=== PATIENT | male | born 1960 | race African-American/Black ===

== ENCOUNTER 2016-04-01 20:18 | Emergency (ER) | payer SELFPAY ==
--- NOTE | 2016-04-01 21:01 | ED Physician Documentation ---
General Adult - HISTORIAN Historian: patient - HPI Stated Complaint: dizzy, "falls out" Chief Complaint: General Adult Additional Information: Gets dizzy and falls down once every 3-4 months over the last year. Has not seen anyone for this. Non-bloody, non-bilious emesis twice a week. Thinks this is because he eats too much salt. Drinks 12 32 ounce cups of water a day. Orthostatics show significant drops in BP and increase in HR. First visit to this ER in 4 years. Staff report "large amount" of weight lost in that period of time. No documentation in computer to compare weights then and now. - ROS CONST: denies: fever, sweating CVS/RESP: denies: chest pain GI/: vomiting - PAST HX Past History: hypertension, other (schizophrenia) Other History: other (chronic back pain; NIDDM; on benztropine, extrapyrimadal symptoms. ) Surgeries/Procedures: none Allergies/Adverse Reactions: Allergies Allergy/AdvReac Type Severity Reaction Status Date / Time No Known Allergies Allergy Verified 04/01/16 21:12 Home Medications: Ambulatory Orders Medication Instructions Recorded Benztropine Mesylate [Benztropine 2 mg PO HS 04/01/16 Mesylate] Citalopram Hydrobromide 20 mg PO D 04/01/16 [Citalopram HBr] Metformin HCl [Glucophage] 500 mg PO D 04/01/16 Simvastatin [Zocor] 20 mg PO D 04/01/16 Trazodone HCl [Oleptro ER] 150 mg PO HS 04/01/16 - SOCIAL HX Smoking History: cigarettes (1/2 PPD for 45 years) Alcohol Use: heavy (quit 5 years ago) Drug Use: none (denies) - FAMILY HX Family History: No - REVIEWED ASSESSMENTS Nursing Assessment Reviewed: Yes Vitals Reviewed: Yes Progress - Progress Progress: Chest PA and lateral views Clinical history: Dyspnea and weight loss Right inferior perihilar region is slightly prominent cannot exclude mass lesion .. Normal heart shadow and mediastinum . Clear left lung. No effusions . Impression: Slightly prominent right inferior perihilar region may require CT scan of the chest exclude mass lesion Otherwise no active pulmonary pathology or pleural effusion Electronically signed on Apr 01, 2016 10:02:42 PM FERMENTER HELPER by: Gideon Castrejon Given outpatient order for Chest CT, results to Dr. Gomez. ED Results Lab/Radiology - Orders Orders: ED Orders Category Date Time Status Continuous EKG monitoring Q1H Care 04/01/16 20:46 Active Continuous Pulse Oximetry Q1H Care 04/01/16 20:46 Active Orthostatics 1T Care 04/01/16 20:[address] Saline Lock/IV Now Care 04/01/16 20:45 Active CBC/PLATELET/DIFF Routine Lab 04/01/16 Ordered CMP Routine Lab 04/01/16 Ordered DRUG SCREEN URINE MEDICAL ONLY Routine Lab 04/01/16 Ordered ETHANOL MEDICAL USE ONLY Stat Lab 04/01/16 Ordered URINALYSIS Routine Lab 04/01/16 Ordered Chem Sticks Med 04/02/16 07:30 Ordered 1 each CHEMQ EKG WITH COMPARISON Stat Ther 04/01/16 Ordered General Adult Physical Exam - PHYSICAL EXAM GENERAL APPEARANCE: no distress EENT: eye inspection normal, ENT inspection normal, pharynx normal NECK: normal inspection, supple. No: lymphadenopathy RESPIRATORY: no resp distress, chest non-tender, breath sounds normal, other ( abdominal breather (affectation?)) CVS: reg rate & rhythm, heart sounds normal, no murmur ABDOMEN: soft, normal bowel sounds, non-tender RECTAL: deferred BACK: normal inspection, no CVA tenderness SKIN: warm/dry, normal color EXTREMITIES: non-tender, normal range of motion, no evidence of injury, no edema NEURO: CN's nml as tested, motor nml, sensation nml Discharge Clincal Impression: Extrapyramidal symptom Additional Instructions: I suspect your occasional fall is related to the side effects from medications you used to take. Make an appointment to see Dr. Gomez in the next two weeks. The clinic number for Dr. Gomez is [phone] Home Medications: Ambulatory Orders Benztropine Mesylate [Benztropine Mesylate] 2 mg PO HS 04/01/16 Citalopram Hydrobromide [Citalopram HBr] 20 mg PO D 04/01/16 Metformin HCl [Glucophage] 500 mg PO D 04/01/16 Simvastatin [Zocor] 20 mg PO D 04/01/16 Trazodone HCl [Oleptro ER] 150 mg PO HS 04/01/16 Condition: Good Disposition: 01 HOME, SELF-CARE Decision to Admit: NO Decision Time: 22:27
[2016-04-01 21:18] LABS: BASOPHILS % 0.5 (0.0-1.5); EOSINOPHILS % 1.3 % (0.0-6.8); MEAN CORPUSCULAR HEMOGLOBIN 26.7 pg (28.0-34.0); MONOCYTES # 0.2 # k/uL (0.0-0.9); MONOCYTES % 4.8 % (0.0-11.0); NEUTROPHILS # 1.3 # k/uL (1.4-7.7)
[2016-04-01 21:30] LABS: eGFR (African) > 60; eGFR (Non-African) > 60
[2016-04-01 22:08] LABS: AMPHETAMINE NEGATIVE ng/mL (<1000); BARBITURATES NEGATIVE ng/mL (<300); CANNABINOIDS NEGATIVE ng/mL (<50); COCAINE NEGATIVE ng/mL (<150); METHAMPHETAMINE NEGATIVE ng/mL (<1000); METHYLENEDIOXYMETHAMPHETAMINE NEGATIVE ng/mL (<500)
[2016-04-01 22:11] LABS: APPEARANCE,URINE Clear (CLEAR); COLOR,URINE Yellow (YELLOW); OCCULT BLOOD,URINE Negative (NEGATIVE); PH URINE 7.5 (5.0 - 8.0); UROBILINOGEN URINE 0.2 Eu (0.2-1.0)
[2016-04-01 22:40] VITALS: BP 118/60
--- NOTE | 2016-04-01 23:57 | Diagnostic Imaging Report ---
[facility] [id number] [facility] [address] [place], [place]. 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 Normal heart shadow and mediastinum . Clear left lung. No effusions . Impression: Slightly prominent right inferior perihilar region may require CT scan of the chest exclude mass lesion Otherwise no active pulmonary pathology or pleural effusion ~ Electronically signed on Apr 01, 2016 10:02:42 PM PRODUCT MARKETING ENGINEER by: Gideon SANCHEZ
== END 2016-04-01 22:25 | disposition home or self-care (01) ==
LOC: ED 20:18
DX: G25.9 Extrapyramidal and movement disorder, unspecified (principal); I10 Essential (primary) hypertension; E11.9 Type 2 diabetes mellitus without complications; Z87.891 Personal history of nicotine dependence
CPT/HCPCS: 71020; 80053; 80320; 80377; 81002; 85025; 99283; G0477; G0480; S1016

== ENCOUNTER 2016-07-24 15:00 | Emergency (ER) | payer OTHER ==
--- NOTE | 2016-07-24 15:33 | ED Physician Documentation ---
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 Has beendrinking more alcohol then usual. Spouse states that he has bee getting more confused. Patient has a history of alcohol dependency in the past.) - ROS CONST: no problems. denies: fever, chills CVS/RESP: shortness of breath, cough (dry) - PAST HX Past History: asthma, other (arthritis) Other History: diabetes Type 2 (recetnly diagnoses, doesnot check BS) Surgeries/Procedures: none Immunizations: referred to PCP Allergies/Adverse Reactions: Allergies Allergy/AdvReac Type Severity Reaction Status Date / Time No Known Allergies Allergy Verified 07/24/16 15:13 Home Medications: Ambulatory Orders Medication Instructions Recorded Trazodone HCl [Oleptro ER] 150 mg PO HS 04/01/16 Citalopram Hydrobromide [Celexa] 40 mg PO DAILY u2 06/18/16 Buspirone HCl [Buspar] 5 mg PO BID #60 tablet 07/24/16 Metformin HCl [Glucophage] 500 mg PO AM #30 tablet 07/24/16 - SOCIAL HX Smoking History: greater than 1 pack/day Alcohol Use: heavy (12 beers a day) Drug Use: none - FAMILY HX Family History: No - VITAL SIGNS Vital Signs: Vital Signs Temp Pulse Resp BP Pulse Ox 98.7 F 73 22 153/83 98 07/24/16 15:07 07/24/16 15:07 07/24/16 15:07 07/24/16 15:07 07/24/16 15:07 - REVIEWED ASSESSMENTS Nursing Assessment Reviewed: Yes Vitals Reviewed: Yes Progress - Progress Progress: Patient advised that his lungs seem to be doing well at this time, his SA02 has been running in the high 90 w/o oxygen, lungs are clear. Believe that some of his symptoms are related to anxiety. Advised to stay off of alcohol, may be having some mild withdrawals. Patient desires to be admitted to [facility] in the AM, will try to arrange for assessment. General Adult Physical Exam - PHYSICAL EXAM GENERAL APPEARANCE: no distress EENT: ENT inspection normal NECK: normal inspection, thyroid normal RESPIRATORY: no resp distress, chest non-tender CVS: reg rate & rhythm, heart sounds normal, equal pulses, no murmur, no gallop ABDOMEN: soft, normal bowel sounds, non-tender, hepatomegaly (mild), distended ( mild). No: rigid BACK: normal inspection, no CVA tenderness SKIN: warm/dry, normal color EXTREMITIES: non-tender, normal range of motion NEURO: CN's nml as tested, motor nml, sensation nml, mood/affect nml Discharge Clincal Impression: Anxiety Prescriptions: Buspirone HCl [Buspar] 5 mg PO BID #60 tablet Metformin HCl [Glucophage] 500 mg PO AM #30 tablet Referrals: Primary Doctor,Emilia [Primary Care Provider] - 2 Days Home Medications: Ambulatory Orders Trazodone HCl [Oleptro ER] 150 mg PO HS 04/01/16 Citalopram Hydrobromide [Celexa] 40 mg PO DAILY u2 06/18/16 Buspirone HCl [Buspar] 5 mg PO BID #60 tablet 07/24/16 Metformin HCl [Glucophage] 500 mg PO AM #30 tablet 07/24/16 Comments: I will call in medication for you to get for your diabetes and anxiety. Call [facility] at 9AM to talk about possible admission. If you have any further problems to return to the ED. Condition: Stable Disposition: 01 HOME, SELF-CARE Decision to Admit: NO Date of Decison to Admit: 07/24/16 Decision Time: 17:02
[2016-07-24 15:48] LABS: BASOPHILS % 0.5 (0.0-1.5); EOSINOPHILS % 1.9 % (0.0-6.8); MEAN CORPUSCULAR HEMOGLOBIN 26.9 pg (28.0-34.0); MEAN CORPUSCULAR VOLUME 85.7 fl (80.0-100.0); MONOCYTES % 8.3 % (0.0-11.0); NEUTROPHILS # 2.1 # k/uL (1.4-7.7)
[2016-07-24 15:59] LABS: eGFR (African) > 60; eGFR (Non-African) > 60
--- NOTE | 2016-07-24 16:51 | Diagnostic Imaging Report ---
[facility] [address] [facility] [address] [place], [place]. [address] Report Submission Date: July 24, 2016 4:40:38 PM CDT Patient Study Name: PHILLIP LEE Date: July 24, 2016 3:58:44 PM CDT Modality Type: CR Gender: M Description: CHEST : 64 Institution: [facility] Physician: JANA SOLER Pa and lateral chest Clinical history :short of breath Comparison April 01, 2016 Technique pa and lateral upright Findings: The lung bain are clear. The lung bain are hyperinflated. The mildly lobulated contour of the right hilum is unchanged and is probably vascular. I see no mediastinal mass. There is no pleural effusion or lesion of the bony thorax. Impression: No acute pulmonary disease Hyperinflation. No change from the previous chest radiograph Electronically signed on July 24, 2016 4:40:38 PM CDT by: Yo SANCHEZ
[2016-07-24 18:08] VITALS: BP 148/75
== END 2016-07-24 17:45 | disposition home or self-care (01) ==
LOC: ED 15:00
DX: F41.9 Anxiety disorder, unspecified (principal); F17.210 Nicotine dependence, cigarettes, uncomplicated
CPT/HCPCS: 71020; 80053; 83036; 84484; 85025; 85379; 99283; S1016

== ENCOUNTER 2016-10-06 13:49 | Emergency (ER) | payer OTHER ==
--- NOTE | 2016-10-06 14:26 | ED Physician Documentation ---
Low Back Pain - HPI Stated Complaint: back pain from fall Chief Complaint: Lower Extremity Injury Onset: days ago (3 days) Duration: continues in ED Recent Injury: Yes Context: fall Where: other (walking to [employer]) Severity: moderate Quality: dull Associated Symptoms: denies: fever, chills Further Comments: yes - ROS CONST: no problems GI/: denies: abdominal pain, black stools - PAST HX Past History: other (schizophrenia) Other History: diabetes Type 2 Surgeries/Procedures: none Allergies/Adverse Reactions: Allergies Allergy/AdvReac Type Severity Reaction Status Date / Time No Known Allergies Allergy Verified 10/06/16 14:05 Home Medications: Ambulatory Orders Medication Instructions Recorded Trazodone HCl [Oleptro ER] 150 mg PO HS 04/01/16 Citalopram Hydrobromide [Celexa] 40 mg PO DAILY u2 06/18/16 Buspirone HCl [Buspar] 5 mg PO BID #60 tablet 07/24/16 Metformin HCl [Glucophage] 500 mg PO AM #30 tablet 07/24/16 Naproxen [Naprosyn] 500 mg PO BID PRN #30 tablet 10/06/16 - SOCIAL HX Smoking History: less than 1 pack/day (1/2 ppd) Alcohol Use: none Drug Use: none - FAMILY HX Family History: no significant history - VITAL SIGNS Vital Signs: Vital Signs Temp Pulse Resp BP Pulse Ox 148/75 07/24/16 18:06 - REVIEWED ASSESSMENTS Nursing Assessment Reviewed: Yes Vitals Reviewed: Yes Low Back Pain/Injury - Physical Exam General Appearance: no acute distress, alert Neck: non-tender Resp/CVS: chest non-tender, breath sounds nml, heart sounds nml, no resp. distress, lungs clear, reg. rate & rhythm Abdomen: non-tender, no organomegaly, no pulsatile mass Back: CVA tenderness (lower right). No: vertebral point-tendernes, muscle spasm Straight Leg Raising: No: Negative Left, Negative Right Neuro/Psych: oriented x3, motor nml, sensation nml, bilat. doriflexion nml, reflexes nml. No: sensory/motor deficit Discharge Clincal Impression: Strain of muscle, fascia and tendon of lower back, initial encounter Referrals: Primary Doctor,No [Primary Care Provider] - 2 Days Additional Instructions: I would go ahead and start using a warm/cool compress to the lower back area as needed for pain. Do the exercises as instructed. I will call in some naproxen 500 mg , to take one by mouth twice a day with food. If symptoms are not improving in the next week to be seen in the clinic for follow-up. Home Medications: Ambulatory Orders Trazodone HCl [Oleptro ER] 150 mg PO HS 04/01/16 Citalopram Hydrobromide [Celexa] 40 mg PO DAILY u2 06/18/16 Buspirone HCl [Buspar] 5 mg PO BID #60 tablet 07/24/16 Metformin HCl [Glucophage] 500 mg PO AM #30 tablet 07/24/16 Naproxen [Naprosyn] 500 mg PO BID PRN #30 tablet 10/06/16 Condition: Stable Disposition: 01 HOME, SELF-CARE Decision to Admit: NO Date of Decison to Admit: 10/06/16 Decision Time: 14:46
[2016-10-06] MEDS: KETOROLAC TROMETHAMINE 60 MG/2 ML VIAL IM ONE (14:40)
== END 2016-10-06 14:55 | disposition home or self-care (01) ==
LOC: ED 13:49
DX: S39.012A Strain of muscle, fascia and tendon of lower back, initial encounter (principal); X58.XXXA Exposure to other specified factors, initial encounter; Y93.9 Activity, unspecified; Y99.9 Unspecified external cause status
CPT/HCPCS: 96372; 99283; J1885

== ENCOUNTER 2017-01-07 11:39 | Emergency (ER) | payer OTHER ==
[2017-01-07 11:56] VITALS: BP 144/78
--- NOTE | 2017-01-07 12:28 | ED Physician Documentation ---
Lower Extremity Problem - HISTORIAN Historian: patient - HPI Stated Complaint: leg pain Chief Complaint: Lower Extremity Problem Additional Information: pt c/o 6 mon of lt lower leg pain-has not taken any meds even ibu or tylenol. no known injuries Location of Injury: L leg Onset: other (6 mo) Timing: still present Duration: constant Recent Injury: No Severity: moderate Quality: pain, tenderness. denies: swelling, numbness, tingling Exacerbated By: nothing, walking (worse w/walking) Relieved By: nothing Associated Symptoms: denies: shortness of breath, rapid heart rate - ROS CONST: no problems MS/SKIN/LYMPH: none GI/: none EYES/ENT: denies: problems with vision NERUO/PSYCH: difficulty walking (slight). denies: headache - PAST HX Past History: none PE Risk Factors: hypertension, other (djd schizophrenia) Surgeries/Procedures: none Allergies/Adverse Reactions: Allergies Allergy/AdvReac Type Severity Reaction Status Date / Time No Known Allergies Allergy Verified 01/07/17 11:56 Home Medications: Ambulatory Orders Medication Instructions Recorded Trazodone HCl [Oleptro ER] 150 mg PO HS 04/01/16 Citalopram Hydrobromide [Celexa] 40 mg PO DAILY u2 06/18/16 Buspirone HCl [Buspar] 5 mg PO BID #60 tablet 07/24/16 Metformin HCl [Glucophage] 500 mg PO AM #30 tablet 07/24/16 Naproxen [Naprosyn] 500 mg PO BID PRN #30 tablet 10/06/16 - SOCIAL HX Smoking History: less than 1 pack/day Alcohol Use: none Drug Use: none - FAMILY HX Family History: no significant history - VITAL SIGNS Vital Signs: Vital Signs Temp Pulse Resp BP Pulse Ox 98.1 F 79 14 144/78 97 01/07/17 11:52 01/07/17 11:52 01/07/17 11:52 01/07/17 11:52 01/07/17 11:52 - REVIEWED ASSESSMENTS Nursing Assessment Reviewed: Yes Vitals Reviewed: Yes ED Results Lab/Radiology - Radiology Radiology Impressions: no acute disease seen lt knee or thigh - Orders Orders: ED Orders Category Date Time Status KNEE 3 VIEWS [RAD] Stat Exams 01/07/17 Completed LOWER LEG X-RAY [TIBIA & FIBULA 2 VIEW] [RAD] Stat Exams 01/07/17 Completed Lower Extremity Problem - EXAM General Appearance: mild distress DTR - Lower Extremities: knee (R): 4+ (swelling or plalp pain knee ok on drawer - sn swelling) Neuro/Tendon: normal sensation, normal motor functions EENT: no signs of dehydration RESPIRATORY: no resp distress, chest non-tender, breath sounds normal CVS: reg rate & rhythm, heart sounds normal VASCULAR: no vascular compromise NEURO/PSYCH: oriented X3, motor nml, sensation nml, mood/affect nml SKIN: warm/dry, normal color. No: cyanosis, diaphoresis, jaundice Discharge Clincal Impression: lt leg pain Referrals: Primary Doctor,No [Primary Care Provider] - 2 Days Comments: home ibu 200 - three tabs tid - f/u w/pcp Condition: Good Disposition: 01 HOME, SELF-CARE Decision to Admit: NO Decision Time: 13:28
--- NOTE | 2017-01-07 13:12 | Diagnostic Imaging Report ---
LUPIS LAMA [facility] [address] [facility].[address] [address] Report Submission Date: Jan 07, 2017 12:42:20 PM CDT Patient Study Name: PHILLIP LEE Date: Jan 07, 2017 12:16:45 PM CDT Modality Type: CR Gender: M Description: LOWER EXTREMITY : 64 Institution: [facility] Physician: LUPIS LAMA Examination: Plain film knee History: Knee discomfort Findings: 3 views of the knee demonstrates normal cortical margins. No fracture. No dislocation. No joint effusion. No soft tissue irregularity. Impression: No acute osseous abnormality. Electronically signed on Jan 07, 2017 12:42:20 PM CDT by: Tejinder SANCHEZ
--- NOTE | 2017-01-07 13:12 | Diagnostic Imaging Report ---
LUPIS LAMA [facility] [address] [facility].[address] [address] Report Submission Date: Jan 07, 2017 12:43:35 PM CDT Patient Study Name: PHILLIP LEE Date: Jan 07, 2017 12:19:20 PM CDT Modality Type: CR Gender: M Description: LOWER EXTREMITY : 64 Institution: [facility] Physician: LUPIS LAMA Examination: Plain film tibia/fibula History: Discomfort Comparison exams: None available Findings: 3 views of the tibia fibula demonstrates normal cortical margins. No evidence for fracture line. Unfused ossicle adjacent to the distal fibula. No soft tissue abnormality. Impression: No acute osseous abnormality. Electronically signed on Jan 07, 2017 12:43:35 PM CDT by: Tejinder SANCHEZ
== END 2017-01-07 13:28 | disposition home or self-care (01) ==
LOC: ED 11:39
DX: M79.662 Pain in left lower leg (principal)
CPT/HCPCS: 73562; 73590; 99283

== ENCOUNTER 2017-02-08 12:17 | Emergency (ER) | payer OTHER ==
--- NOTE | 2017-02-08 12:35 | ED Physician Documentation ---
Low Back Pain - HISTORIAN Historian: patient - HPI Stated Complaint: Back Pain Chief Complaint: Low Back Pain/ Injury History: history of chronic pain: Onset: other (2 months ) Duration: continues in ED Recent Injury: No Context: bending Where: other (all the time) Other Injuries: other (hurt all over ) Severity: mild Quality: other ("just hurts" ) Associated Symptoms: denies: fever, constipation, incontinence, nausea, vomiting , dizziness Worsened By:: other (bending forward ) Relieved By: nothing Further Comments: yes (he states he has been treated by Dr Gomez for back pain and he is not noting any change in meds or pain) - ROS CONST: no problems CVS/RESP: none EYES/ENT: none MS/SKIN/LYMPH: none Neuro/Psych: none GI/: denies: abdominal pain - PAST HX Past History: other (psych and back pain ) Surgeries/Procedures: none Immunizations: referred to PCP Allergies/Adverse Reactions: Allergies Allergy/AdvReac Type Severity Reaction Status Date / Time No Known Allergies Allergy Verified 01/07/17 11:56 Home Medications: Ambulatory Orders Medication Instructions Recorded Trazodone HCl [Oleptro ER] 150 mg PO HS 04/01/16 Citalopram Hydrobromide [Celexa] 40 mg PO DAILY u2 06/18/16 Buspirone HCl [Buspar] 5 mg PO BID #60 tablet 07/24/16 Metformin HCl [Glucophage] 500 mg PO AM #30 tablet 07/24/16 Naproxen [Naprosyn] 500 mg PO BID PRN #30 tablet 10/06/16 - SOCIAL HX Smoking History: cigarettes Alcohol Use: none Drug Use: none - FAMILY HX Family History: none - VITAL SIGNS Vital Signs: Vital Signs Temp Pulse Resp BP Pulse Ox 98 F 77 18 121/76 98 02/08/17 12:26 02/08/17 12:26 02/08/17 12:26 02/08/17 12:26 02/08/17 12:26 - REVIEWED ASSESSMENTS Nursing Assessment Reviewed: Yes Vitals Reviewed: Yes ED Results Lab/Radiology - Orders Orders: ED Orders Category Date Time Status Ketorolac Tromethamine [Toradol] Med 02/08/17 12:36 Once 60 mg IM NOW ONE Low Back Pain/Injury - Physical Exam General Appearance: no acute distress EENT: eye inspection normal Neck: non-tender, painless ROM Resp/CVS: chest non-tender, breath sounds nml, heart sounds nml, no resp. distress, lungs clear, reg. rate & rhythm Abdomen: non-tender, no organomegaly Back: non-tender, other (does note pain with forward bending ) Neuro/Psych: oriented x3, motor nml, sensation nml Skin: warm/dry, normal color Extremities: non-tender, normal range of motion, no evidence of injury, no edema Discharge Clincal Impression: Low back pain Qualifiers: Chronicity: chronic Back pain laterality: bilateral Sciatica presence: without sciatica Qualified Code(s): M54.5 - Low back pain; G89.29 - Other chronic pain; G89.29 - Other chronic pain Referrals: Primary Doctor,No [Primary Care Provider] - 2 Days Condition: Stable Disposition: 01 HOME, SELF-CARE Decision to Admit: NO Date of Decison to Admit: 02/08/17 Decision Time: 12:37
[2017-02-08] MEDS ORDERED: KETOROLAC TROMETHAMINE 60 MG/2 ML VIAL IM ONE (12:36)
[2017-02-08 12:51] VITALS: BP 118/68
== END 2017-02-08 12:50 | disposition home or self-care (01) ==
LOC: ED 12:17
DX: M54.5 Low back pain (principal); G89.29 Other chronic pain
CPT/HCPCS: 96372; 99283; J1885

== ENCOUNTER 2017-03-03 14:03 | Emergency (ER) | payer OTHER ==
--- NOTE | 2017-03-03 14:17 | ED Physician Documentation ---
General Adult - HISTORIAN Historian: patient - HPI Stated Complaint: back pain Chief Complaint: General Adult Onset: days ago Timing: still present Severity: moderate Further Comments: yes (Pt is a 56 yo male with back pain. Pt slipped on wet grass about 2 weeks ago and has had back pain intermittently. 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 Pt was seen here once before with same complaint. ) - ROS CONST: no problems EYES/ENT: none CVS/RESP: none MS/SKIN/LYMPH: back pain - PAST HX Past History: other (diabetes, schizophrenia) Allergies/Adverse Reactions: Allergies Allergy/AdvReac Type Severity Reaction Status Date / Time No Known Allergies Allergy Verified 03/03/17 14:19 Home Medications: Ambulatory Orders Medication Instructions Recorded Trazodone HCl [Oleptro ER] 150 mg PO HS 04/01/16 Citalopram Hydrobromide [Celexa] 40 mg PO DAILY u2 06/18/16 Buspirone HCl [Buspar] 5 mg PO BID #60 tablet 07/24/16 Naproxen [Naprosyn] 500 mg PO BID PRN #30 tablet 10/06/16 - SOCIAL HX Smoking History: cigarettes - FAMILY HX Family History: No - VITAL SIGNS Vital Signs: Vital Signs Temp Pulse Resp BP Pulse Ox 118/68 02/08/17 12:50 - REVIEWED ASSESSMENTS Nursing Assessment Reviewed: Yes Vitals Reviewed: Yes Progress - Progress Progress: Norflex 60 mg IM Toradol 60 mg IM improved. General Adult Physical Exam - PHYSICAL EXAM GENERAL APPEARANCE: moderate distress NECK: normal inspection, supple RESPIRATORY: no resp distress, chest non-tender, breath sounds normal CVS: reg rate & rhythm, heart sounds normal BACK: normal inspection, other (paraspinal muscle spasm, lumbar spine) SKIN: warm/dry, normal color EXTREMITIES: non-tender, normal range of motion, no evidence of injury NEURO: motor nml, sensation nml, other (baseline ms) Discharge Clincal Impression: back pain Referrals: Primary Doctor,No [Primary Care Provider] - Condition: Good Disposition: 01 HOME, SELF-CARE Decision to Admit: NO Decision Time: 14:39
[2017-03-03] MEDS ORDERED: KETOROLAC TROMETHAMINE 60 MG/2 ML VIAL IM ONE (14:20)
[2017-03-03] MEDS ORDERED: (BACK ORDERED; DO NOT ORDER) DIAZEPAM 5 MG/ML DISP.SYRIN IM ONE (14:21)
[2017-03-03] MEDS ORDERED: ORPHENADRINE CITRATE 60 MG/2ML ONE (14:26)
[2017-03-03] MEDS ORDERED: ORPHENADRINE CITRATE 60 MG/2ML IM ONE (14:26)
== END 2017-03-03 14:42 | disposition home or self-care (01) ==
LOC: ED 14:03
DX: M54.9 Dorsalgia, unspecified (principal)
CPT/HCPCS: J1885; J2360; 96372; 99283

== ENCOUNTER 2017-03-16 19:12 | Emergency (ER) | payer OTHER ==
--- NOTE | 2017-03-16 19:46 | ED Physician Documentation ---
General Adult - HISTORIAN Historian: patient - HPI Stated Complaint: vomiting Chief Complaint: General Adult Onset: hours Timing: still present Severity: moderate Further Comments: yes (Pt is a 56 yo male with schizophrenia and c/o vomiting.) - ROS CONST: weakness, chills EYES/ENT: none CVS/RESP: none GI/: vomiting, nausea MS/SKIN/LYMPH: none - PAST HX Past History: hypertension, other (schizophrenia, anxiety) Allergies/Adverse Reactions: Allergies Allergy/AdvReac Type Severity Reaction Status Date / Time No Known Allergies Allergy Verified 03/16/17 19:37 Home Medications: Ambulatory Orders Medication Instructions Recorded Trazodone HCl [Oleptro ER] 150 mg PO HS 04/01/16 Citalopram Hydrobromide [Celexa] 40 mg PO DAILY u2 06/18/16 Buspirone HCl [Buspar] 5 mg PO BID #60 tablet 07/24/16 Naproxen [Naprosyn] 500 mg PO BID PRN #30 tablet 10/06/16 - SOCIAL HX Smoking History: cigarettes - FAMILY HX Family History: No - VITAL SIGNS Vital Signs: Vital Signs Temp Pulse Resp BP Pulse Ox 97.9 F 93 H 16 159/84 99 03/16/17 19:15 03/16/17 19:15 03/16/17 19:15 03/16/17 19:15 03/16/17 19:15 - REVIEWED ASSESSMENTS Nursing Assessment Reviewed: Yes Vitals Reviewed: Yes Progress - Progress Progress: NS 1 L IVF zofran 4 mg IV Pt would not stay to received IVF. Pt received approx 300 cc IVF. General Adult Physical Exam - PHYSICAL EXAM GENERAL APPEARANCE: mild distress EENT: pharynx normal NECK: normal inspection, supple RESPIRATORY: no resp distress, chest non-tender, breath sounds normal CVS: reg rate & rhythm, heart sounds normal ABDOMEN: soft, no organomegaly, normal bowel sounds, non-tender BACK: normal inspection, no CVA tenderness SKIN: warm/dry, normal color EXTREMITIES: non-tender, normal range of motion, no evidence of injury NEURO: oriented X3, motor nml, sensation nml Discharge Clincal Impression: Mild dehydration, alcohol use Referrals: Gideon Gomez MD [Primary Care Provider] - Condition: Stable Disposition: HOME, SELF-CARE Decision to Admit: NO Decision Time: 20:47
[2017-03-16 20:07] LABS: BASOPHILS % 0.4 (0.0-1.5); EOSINOPHILS % 2.4 % (0.0-6.8); MEAN CORPUSCULAR HEMOGLOBIN 27.5 pg (28.0-34.0); MEAN CORPUSCULAR VOLUME 86.2 fl (80.0-100.0); MONOCYTES % 4.8 % (0.0-11.0); NEUTROPHILS # 2.4 # k/uL (1.4-7.7)
[2017-03-16] MEDS: 0.9 % SODIUM CHLORIDE 1,000 ML IV ONE (20:20)
[2017-03-16] MEDS: ONDANSETRON HCL/PF 4 MG/ 2ML VIAL IVP ONE (20:20)
[2017-03-16 20:26] LABS: eGFR (African) > 60; eGFR (Non-African) > 60
[2017-03-16 20:59] VITALS: BP 124/68
== END 2017-03-16 20:45 | disposition home or self-care (01) ==
LOC: ED 19:12
DX: E86.0 Dehydration (principal); F10.94 Alcohol use, unspecified with alcohol-induced mood disorder; F20.9 Schizophrenia, unspecified
CPT/HCPCS: 80053; 80320; 85025; 87400; J2405; J7030; 96361; 96374; 99282; 99283; G0480; S1016

== ENCOUNTER 2017-03-30 09:33 | Emergency (ER) | payer OTHER ==
[2017-03-30] MEDS ORDERED: MAG HYDROX/AL HYDROX/SIMETH 30 ML, Lidocaine 2%Visc 15ml 20 MG, PHENobarb/HYOSCY/ATROPI... PO ONE ×6 (09:42→10:43)
[2017-03-30] MEDS ORDERED: Lidocaine 2%Visc 15ml 20 MG/ML UDC ONE ×2 (09:49→10:44)
[2017-03-30] MEDS ORDERED: MAGNESIUM HYDROXIDE/AL HYDROX 30 ML UDC PO ONE ×2 (09:49→10:43)
--- NOTE | 2017-03-30 09:50 | ED Physician Documentation ---
Abdominal Pain - HISTORIAN Historian: patient - HPI Stated Complaint: Abdominal Pain Chief Complaint: Abdominal Pain Additonal Information: onset this am epigastric pain w/diarrhea x2 normal brown color not liquid. bs this da=[id number]. no recent bad food known. no food since noon yesterday. Onset: hours (6) Duration: waxing, waning Timing: still present Context: bad food (possibly. pt thinks food yest poss not good-chicken which had been in refrig 2 weeks plus. vbital signs good and no fever). denies: out of country travel Severity: mild, moderate Quality: pain Associated Symptoms: nausea, diarrhea Exacerbated by: food Relieved by: supine, remaining still Further Comments: no - ROS CONST: no problems GI/: none CVS/RESP: none EYES/ENT: none MS/SKIN/LYMPH: none. denies: leg swelling, rash, swollen glands, recent injury NEURO/PSYCH: anxiety - SOCIAL HX Smoking History: cigarettes Alcohol Use: none Drug Use: none - FAMILY HX Family History: no significant history, other (htn dm schizophrenia bipolar) - PAST HX Past History: other (as above) Home Medications: Ambulatory Orders Medication Instructions Recorded Trazodone HCl [Oleptro ER] 150 mg PO HS 04/01/16 Benztropine Mesylate 2 mg PO HS 03/30/17 Buspirone HCl [BUSPAR] 5 mg PO BID 03/30/17 Citalopram Hydrobromide 40 mg PO DAILY 03/30/17 [Citalopram HBr] Metformin HCl [Glucophage] 500 mg PO [id number] 03/30/17 Trazodone HCl [Desyrel] 150 mg PO HS 03/30/17 Allergies/Adverse Reactions: Allergies Allergy/AdvReac Type Severity Reaction Status Date / Time No Known Allergies Allergy Verified 03/16/17 19:37 - VITAL SIGNS Vital Signs: Vital Signs Temp Pulse Resp BP Pulse Ox 90 18 134/71 99 03/30/17 09:35 03/30/17 09:35 03/30/17 09:35 03/30/17 09:35 Progress - Results/Orders Results/Orders: pt reports markedly improved-jose;l dismissd rec probably dt tainted chicken-to f /u w/ pcp and get mylanta for next few days ED Results Lab/Radiology - Orders Orders: ED Orders Category Date Time Status Chem Sticks Med 03/30/17 11:00 Ordered 1 each MC CHEMQ Lidocaine 2%Visc 15ml [Xylocaine] Med 03/30/17 09:49 Discontinued 300 mg .ROUTE .STK-MED ONE Lidocaine 2%Visc 15ml [Xylocaine] Med 03/30/17 10:44 Discontinued 300 mg .ROUTE .STK-MED ONE Mag Hydrox/Al Hydrox/Simeth [Mylanta] 30 ml Med 03/30/17 09:42 Discontinued Lidocaine 2%Visc 15ml [Xylocaine] 20 mg PHENobarb/HYOSCY/ATROPINE/SCOP [] 10 ml PO NOW Mag Hydrox/Al Hydrox/Simeth [Mylanta] 30 ml Med 03/30/17 10:43 Discontinued Lidocaine 2%Visc 15ml [Xylocaine] 20 mg PHENobarb/HYOSCY/ATROPINE/SCOP [] 10 ml PO NOW Magnesium Hydroxide/Al Hydrox [Maalox] Med 03/30/17 09:49 Discontinued 30 ml PO .STK-MED ONE Magnesium Hydroxide/Al Hydrox [Maalox] Med 03/30/17 10:43 Discontinued 30 ml PO .STK-MED ONE Abdominal Pain Physical Exam - Physical Exam General Appearance: mild distress EENT: eye inspection normal NECK: normal inspection, supple. No: lymphadenopathy, carotid bruit RESPIRATORY: no resp distress, breath sounds normal CVS: reg rate & rhythm, heart sounds normal ABDOMEN: soft, tenderness (martir epigastric). No: abnormal bowel sounds, McBurney 's point tenderne NEURO: oriented X3, motor nml, sensation nml, mood/affect nml Vital Signs: Vital Signs Temp Pulse Resp BP Pulse Ox 90 18 134/71 99 03/30/17 09:35 03/30/17 09:35 03/30/17 09:35 03/30/17 09:35 Discharge Clincal Impression: food poisioning-improved Referrals: Gideon Gomez MD [Primary Care Provider] - 2 Days Comments: avoid ol;d foods-use mylanta-see pcp very soon or rt ed Condition: Good Disposition: 01 HOME, SELF-CARE Decision to Admit: NO Decision Time: 11:15
[2017-03-30 11:28] VITALS: BP 120/68
== END 2017-03-30 11:26 | disposition home or self-care (01) ==
LOC: ED 09:33
DX: T62.8X1A Toxic effect of other specified noxious substances eaten as food, accidental (unintentional), initial encounter (principal); X58.XXXA Exposure to other specified factors, initial encounter; Y93.9 Activity, unspecified
CPT/HCPCS: 99283; A9270

== ENCOUNTER 2017-05-19 09:17 | Emergency (ER) | payer OTHER ==
--- NOTE | 2017-05-19 09:22 | ED Physician Documentation ---
General Adult - HISTORIAN Historian: patient - HPI Stated Complaint: epigatric pain Chief Complaint: General Adult Onset: days ago (3) Timing: still present Severity: mild Further Comments: yes (He states he has had this pain in the past. He states he has no eaten in 3 days. He states the pain started 3 days ago. He did report vomiting to the nurse but states that is not the case. No fever. No exposures. He states he would like a prescription shot to sleep and asprin) Last known Well Code/Unknown Code: Unknown - ROS CONST: no problems EYES/ENT: none CVS/RESP: none GI/: abdominal pain. denies: problems urinating, vomiting, nausea MS/SKIN/LYMPH: denies: rash NEURO/PSYCH: denies: headache, fainting, dizziness, difficulty walking, difficulty with speech - PAST HX Past History: other Other History: diabetes Type 2, other (depression ) Surgeries/Procedures: other (unknown ) Immunizations: referred to PCP Allergies/Adverse Reactions: Allergies Allergy/AdvReac Type Severity Reaction Status Date / Time No Known Allergies Allergy Verified 05/19/17 09:26 Home Medications: Ambulatory Orders Medication Instructions Recorded Trazodone HCl [Oleptro ER] 150 mg PO HS 04/01/16 Benztropine Mesylate 2 mg PO HS 03/30/17 Buspirone HCl [BUSPAR] 5 mg PO BID 03/30/17 Citalopram Hydrobromide 40 mg PO DAILY 03/30/17 [Citalopram HBr] Metformin HCl [Glucophage] 500 mg PO [id number] 03/30/17 Trazodone HCl [Desyrel] 150 mg PO HS 03/30/17 Ranitidine HCl 150 mg PO BID #60 tablet 05/19/17 - SOCIAL HX Smoking History: non-smoker Alcohol Use: none Drug Use: none - FAMILY HX Family History: No - VITAL SIGNS Vital Signs: Vital Signs Temp Pulse Resp BP Pulse Ox 120/68 03/31/17 14:55 - REVIEWED ASSESSMENTS Nursing Assessment Reviewed: Yes Vitals Reviewed: Yes Progress - Progress Progress: 0942: tolerating breakfast tray well. He is up in the room and in the bed, to the chair and bathroom with no pain complaints. DG General Adult Physical Exam - PHYSICAL EXAM GENERAL APPEARANCE: no distress EENT: eye inspection normal NECK: normal inspection RESPIRATORY: no resp distress, chest non-tender, breath sounds normal CVS: reg rate & rhythm, heart sounds normal, equal pulses, no murmur ABDOMEN: soft, normal bowel sounds, no distension, tenderness (no gaurding. he states pain with palpation 'everywhere' palpation with no masses. ) BACK: normal inspection SKIN: warm/dry, normal color EXTREMITIES: non-tender, normal range of motion, no evidence of injury, no edema NEURO: oriented X3, CN's nml as tested, motor nml, sensation nml, mood/affect nml, cognition normal Discharge Clincal Impression: Reflux gastritis Prescriptions: Ranitidine HCl 150 mg PO BID #60 tablet Referrals: Gideon Gomez MD [Primary Care Provider] - 2 Days Comments: 1. Zantac 150 mg BID ordered 2. Eat food 3. Return to PCP for sleeping concerns. 4. Return to ER for any increased pain or concerns Condition: Stable Disposition: 01 HOME, SELF-CARE Decision to Admit: NO Date of Decison to Admit: 05/19/17 Decision Time: 09:48
[2017-05-19] MEDS: ACETAMINOPHEN 500 MG TABLET ONE (09:32)
[2017-05-19] MEDS: FAMOTIDINE 20 MG TABLET PO ONE (09:32)
[2017-05-19] MEDS: FAMOTIDINE 20 MG TABLET ONE (09:32)
[2017-05-19] MEDS: ACETAMINOPHEN 325 MG TABLET PO ONE (09:32)
[2017-05-19 09:52] VITALS: BP 121/76
== END 2017-05-19 09:48 | disposition home or self-care (01) ==
LOC: ED 09:17
DX: K29.00 Acute gastritis without bleeding (principal)
CPT/HCPCS: 99282

== ENCOUNTER 2017-05-20 10:20 | Emergency (ER) | payer OTHER ==
[2017-05-20] MEDS: MAG HYDROX/AL HYDROX/SIMETH 30 ML, Lidocaine 2%Visc 15ml 20 MG, PHENobarb/HYOSCY/ATROPI... PO ONE ×3 (10:30)
[2017-05-20] MEDS: Lidocaine 2%Visc 15ml 20 MG/ML UDC ONE (10:55)
[2017-05-20] MEDS: MAGNESIUM HYDROXIDE/AL HYDROX 30 ML UDC PO ONE (10:55)
--- NOTE | 2017-05-20 11:11 | ED Physician Documentation ---
Abdominal Pain - HISTORIAN Historian: patient - HPI Stated Complaint: epigastric pain, nausea Chief Complaint: Abdominal Pain Additonal Information: pt here s/o epigastric distress. was here 2 x yest for same he was given zantac but is non compliant and does not eat in consistent manner -statews lives by self told me he did not eat last noct but later states he ate a possibly tainted chicken leg. he requested a tray this am. pt states a desire to but vehimently denies any suicide ideation.. he has been given a gi coctail and says that helps some. Onset: days ago (recurrent over past several days but is meds and dietary non compliant-livess by selt occ stays w/brother and sister) Duration: waxing, waning Timing: worse Context: bad food (possibly). denies: out of country travel Severity: moderate Quality: pain, burning, cramping Associated Symptoms: none Relieved by: food, antacids (took zantac last noct but 'FORGOT THIS AM') Further Comments: yes (fsbs =123) - ROS CONST: recent illness (appears depressed-reportedly his brother had sudden and the ), other (pts brother recently had sudden and the [employer] [facility] AND WAS doa AT THE HOSPITAL.) GI/: none CVS/RESP: none EYES/ENT: none MS/SKIN/LYMPH: none NEURO/PSYCH: depression (PT ADMITS TO BEING DEPRESSED-IN PART DUE TO BROTHER) - SOCIAL HX Smoking History: less than 1 pack/day Alcohol Use: none Drug Use: none - FAMILY HX Family History: none (as above) - PAST HX Past History: other (diabetes schizophrenia htn) Ischemic Bowel Risk Factors: none Surgeries/Procedures: none Home Medications: Ambulatory Orders Medication Instructions Recorded Trazodone HCl [Oleptro ER] 150 mg PO HS 04/01/16 Benztropine Mesylate 2 mg PO HS 03/30/17 Buspirone HCl [BUSPAR] 5 mg PO BID 03/30/17 Citalopram Hydrobromide 40 mg PO DAILY 03/30/17 [Citalopram HBr] Metformin HCl [Glucophage] 500 mg PO [id number] 03/30/17 Ranitidine HCl 150 mg PO BID #60 tablet 05/19/17 Paroxetine HCl [Paxil] 10 mg PO 1T #30 ml 05/20/17 Allergies/Adverse Reactions: Allergies Allergy/AdvReac Type Severity Reaction Status Date / Time No Known Allergies Allergy Verified 05/20/17 10:29 - VITAL SIGNS Vital Signs: Vital Signs Temp Pulse Resp BP Pulse Ox 98.2 F 75 18 157/93 97 05/20/17 10:31 05/20/17 10:31 05/20/17 10:31 05/20/17 10:31 05/20/17 10:31 - REVIEWED ASSESSMENTS Nursing Assessment Reviewed: Yes Vitals Reviewed: Yes Progress - Results/Orders Results/Orders: called social svc for consul--she and pt agree consiter ICF would be beneficial for pt for meds and dietary compliance and social interaction will be of benefit since pt lives alone--soc svc in working on admission.. pt appears appreciative for this tyope approach. additionally he desires rx for admitted depression and indeed he does appear depressed. ED Results Lab/Radiology - Lab Results Lab Results: Lab Results 05/20/17 05/20/17 05/20/17 11:10 11:10 11:10 WBC 2.60 K/ul L K/ul (4.00-12.00) RBC 4.74 M/ul M/ul (3.90-5.20) Hgb 13.5 g/dL g/dL (12.0-18.0) Hct 42.4 % % (37.0-53.0) MCV 89.4 fl fl (80.0-100.0) MCH 28.6 pg pg (28.0-34.0) MCHC 32.0 g/dL g/dL (30.0-36.0) RDW 16.0 % H % (11.3-14.3) Plt Count 199 K/mm3 K/mm3 (130-400) Neut % (Auto) 50.5 % % (39.0-79.0) Lymph % (Auto) 35.5 % % (16.0-50.0) [place] % (Auto) 10.6 % % (0.0-11.0) Eos % (Auto) 1.8 % % (0.0-6.8) Baso % (Auto) 0.3 (0.0-1.5) Neut # (Auto) 1.3 # k/uL L # k/uL (1.4-7.7) Lymph # (Auto) 0.9 # k/uL # k/uL (0.6-4.0) [place] # (Auto) 0.3 # k/uL # k/uL (0.0-0.9) Eos # (Auto) 0.0 # k/uL # k/uL (0.0-0.6) Baso # (Auto) 0.0 # k/uL # k/uL (0.0-0.5) Reactive Lymphs % 1.4 % % (0.0-5.0) Reactive Lymphs # 0.0 # k/uL # k/uL (0.0-0.8) Sodium 139 mmol/L mmol/L (136-145) Potassium 4.4 mmol/L mmol/L (3.5-5.1) Chloride 100 mmol/L mmol/L (98-107) Carbon Dioxide 26 mmol/L mmol/L (22-30) BUN 11 mg/dL mg/dL (9-20) Creatinine 1.00 mg/dL mg/dL (0.66-1.25) Estimated Creat Clear 113 Est GFR ( Amer) > 60 (60 - ) Est GFR (Non-Af Amer) > 60 (60 - ) Glucose 101 mg/dL mg/dL (74-106) Calcium 9.5 mg/dL mg/dL (8.4-10.2) Total Bilirubin 0.7 mg/dL mg/dL (0.2-1.3) AST 40 U/L U/L (15-46) ALT 31 U/L U/L (13-69) Alkaline Phosphatase 107 U/L U/L (38-126) Total Protein 8.7 g/dL H g/dL (6.3-8.2) Albumin 4.6 g/dL g/dL (3.5-5.0) Lipase 175 U/L U/L (23-300) - Orders Orders: ED Orders Category Date Time Status Dialysis Technician Consult [CONS] NOW Cons 05/20/17 11:06 Ordered CBC/PLATELET/DIFF Routine Lab 05/20/17 11:10 Completed CMP Routine Lab 05/20/17 11:10 Completed LIPASE Stat Lab 05/20/17 11:10 Completed URINALYSIS Routine Lab 05/20/17 Ordered Chem Sticks Med 05/20/17 10:30 Discontinued 1 each MC NOW ONE Lidocaine 2%Visc 15ml [Xylocaine] Med 05/20/17 10:22 Discontinued 300 mg .ROUTE .STK-MED ONE Mag Hydrox/Al Hydrox/Simeth [Mylanta] 30 ml Med 05/20/17 10:28 Discontinued Lidocaine 2%Visc 15ml [Xylocaine] 20 mg PHENobarb/HYOSCY/ATROPINE/SCOP [] 10 ml PO NOW Magnesium Hydroxide/Al Hydrox [Maalox] Med 05/20/17 10:22 Discontinued 30 ml PO .STK-MED ONE Abdominal Pain Physical Exam - Physical Exam General Appearance: moderate distress, lethargic EENT: eye inspection normal NECK: normal inspection RESPIRATORY: no resp distress, chest non-tender, breath sounds normal CVS: reg rate & rhythm, heart sounds normal ABDOMEN: soft SKIN: warm/dry, normal color. No: cyanosis, diaphoresis, jaundice, mottled EXTREMITIES: non-tender, normal range of motion NEURO: oriented X3 Vital Signs: Vital Signs Temp Pulse Resp BP Pulse Ox 98.2 F 75 18 157/93 97 05/20/17 10:31 05/20/17 10:31 05/20/17 10:31 05/20/17 10:31 05/20/17 10:31 Discharge Clincal Impression: epigastric distress-improved , dietary and meds non compliance, depression Prescriptions: Paroxetine HCl [Paxil] 10 mg PO 1T #30 ml Referrals: Gideon Gomez MD [Primary Care Provider] - 2 Days Comments: social svc asst in placement ICF for social interaction asst w/meds and food compliance Condition: Fair Disposition: 01 HOME, SELF-CARE Decision to Admit: NO Decision Time: 12:07
[2017-05-20 11:18] LABS: BASOPHILS % 0.3 (0.0-1.5); EOSINOPHILS % 1.8 % (0.0-6.8); MEAN CORPUSCULAR HEMOGLOBIN 28.6 pg (28.0-34.0); MEAN CORPUSCULAR VOLUME 89.4 fl (80.0-100.0); MONOCYTES % 10.6 % (0.0-11.0); NEUTROPHILS # 1.3 # k/uL (1.4-7.7)
[2017-05-20 11:38] LABS: eGFR (African) > 60; eGFR (Non-African) > 60
[2017-05-20 12:23] VITALS: BP 134/89
[2017-05-21 10:58] LABS: APPEARANCE,URINE CLEAR (CLEAR); COLOR,URINE AMBER (YELLOW); OCCULT BLOOD,URINE NEGATIVE (NEGATIVE); PH URINE 5.5 (5.0 - 8.0); UROBILINOGEN URINE 0.2 Eu (0.2-1.0)
== END 2017-05-20 12:21 | disposition home or self-care (01) ==
LOC: ED 10:20
DX: R10.13 Epigastric pain (principal); E11.9 Type 2 diabetes mellitus without complications; I10 Essential (primary) hypertension; F32.89 Other specified depressive episodes; F20.9 Schizophrenia, unspecified
CPT/HCPCS: 80053; 81002; 83690; 85025; A9270; 99283

== ENCOUNTER 2017-05-21 09:57 | Emergency (ER) | payer OTHER ==
--- NOTE | 2017-05-21 10:17 | ED Physician Documentation ---
General Adult - HISTORIAN Historian: patient - HPI Chief Complaint: Dyspnea (2 day) Additional Information: Patient states that he has been SOB for several days, has been wheezing some. Has cough has been productive of clear phlegm. No chest pain noted. Has had some mild swelling in lower extremities. Patient denies any orthopnic symptoms. Patient denies any hemophysis. No fever or chills noted. Timing: still present Severity: mild Modifying Factors: worse with exerction, nothing helps with symptoms Context: no precipitating factor Further Comments: yes (Patient has been seen 2 times in the last 2 days in the ED for abd pain. Patient deneis any abd pain at this time. No nausea/vomiting/ diarrhea/constipation/ melena/ hematachezia.) - ROS CONST: denies: fever, sweating, chills EYES/ENT: none CVS/RESP: shortness of breath, cough. denies: chest pain GI/: none. denies: abdominal pain, problems urinating, vomiting, nausea, diarrhea MS/SKIN/LYMPH: none. denies: calf pain - PAST HX Past History: hypertension, other (schizofrenia) Other History: diabetes Type 2 Surgeries/Procedures: none Immunizations: referred to PCP Allergies/Adverse Reactions: Allergies Allergy/AdvReac Type Severity Reaction Status Date / Time No Known Allergies Allergy Verified 05/21/17 10:25 Home Medications: Ambulatory Orders Medication Instructions Recorded Trazodone HCl [Oleptro ER] 150 mg PO HS 04/01/16 Benztropine Mesylate 2 mg PO HS 03/30/17 Buspirone HCl [BUSPAR] 5 mg PO BID 03/30/17 Citalopram Hydrobromide 40 mg PO DAILY 03/30/17 [Citalopram HBr] Metformin HCl [Glucophage] 500 mg PO [id number] 03/30/17 Ranitidine HCl 150 mg PO BID #60 tablet 05/19/17 Paroxetine HCl [Paxil] 10 mg PO 1T #30 ml 05/20/17 - SOCIAL HX Smoking History: less than 1 pack/day (1/2 ppd) Alcohol Use: occasionally Drug Use: marijuana - FAMILY HX Family History: Yes - VITAL SIGNS Vital Signs: Vital Signs Temp Pulse Resp BP Pulse Ox 134/89 05/20/17 12:21 - REVIEWED ASSESSMENTS Nursing Assessment Reviewed: Yes Vitals Reviewed: Yes Progress - EKG/XRAY/CT EKG: NSR, nonspecific ST T wave chg Comments: no acute ischemic changes, low voltage lead 2 ED Results Lab/Radiology - Radiology Radiology Impressions: Examination: PA and lateral chest. History: Evaluate lung bain. DYSPNEA AND COUGH X 4 DAYS (Hx) Comparison exam: None available for direct view. Findings: PA lateral chest demonstrate a normal cardiac and mediastinal silhouette. Mild tortuosity of the thoracic aorta. No focal infiltrate. No blunting of the costophrenic margins. Osseous structures are appropriate for age. Impression: No acute pulmonary process. General Adult Physical Exam - PHYSICAL EXAM GENERAL APPEARANCE: no distress EENT: eye inspection normal, ENT inspection normal, pharynx normal, no signs of dehydration NECK: normal inspection, thyroid normal, supple RESPIRATORY: no resp distress, chest non-tender, breath sounds normal. No: wheezes, rales, rhonchi CVS: reg rate & rhythm, heart sounds normal, equal pulses ABDOMEN: soft, no organomegaly, normal bowel sounds, no abdominal bruit SKIN: warm/dry, normal color EXTREMITIES: non-tender, no edema NEURO: oriented X3, CN's nml as tested, mood/affect nml, cognition normal Discharge Clincal Impression: Dyspnea Referrals: Gideon Gomez MD [Primary Care Provider] - 2 Days Additional Instructions: It appears that your breathing is doing ok with no major problems. Home and rest. Drink a lot of fluids. Continue with your current medications. Condition: Stable Disposition: 01 HOME, SELF-CARE Decision to Admit: NO Date of Decison to Admit: 05/21/17 Decision Time: 12:28
[2017-05-21 10:50] LABS: MEAN CORPUSCULAR HEMOGLOBIN 28.6 pg (28.0-34.0); MEAN CORPUSCULAR VOLUME 89.3 fl (80.0-100.0)
[2017-05-21 11:03] LABS: eGFR (African) > 60; eGFR (Non-African) > 60
--- NOTE | 2017-05-21 11:16 | Diagnostic Imaging Report ---
JANA SOLER [facility] [id number] Counts Include 234 Beds At [facility] [address] [address] Report Submission Date: May 21, 2017 11:01:05 AM DATA ANALYST REPORT WRITER Patient Study Name: PHILLIP LEE Date: May 21, 2017 10:39:18 AM DATA ANALYST REPORT WRITER Modality Type: DX Gender: M Description: CHEST : 64 Institution: [facility] Physician: JANA SOLER Examination: PA and lateral chest. History: Evaluate lung bain. DYSPNEA AND COUGH X 4 DAYS (Hx) Comparison exam: None available for direct view. Findings: PA lateral chest demonstrate a normal cardiac and mediastinal silhouette. Mild tortuosity of the thoracic aorta. No focal infiltrate. No blunting of the costophrenic margins. Osseous structures are appropriate for age. Impression: No acute pulmonary process. Electronically signed on May 21, 2017 11:01:05 AM DATA ANALYST REPORT WRITER by: Tejinder SANCHEZ
[2017-05-21 13:50] VITALS: BP 154/92
== END 2017-05-21 13:20 | disposition home or self-care (01) ==
LOC: ED 09:57
DX: R06.00 Dyspnea, unspecified (principal); I10 Essential (primary) hypertension; E11.9 Type 2 diabetes mellitus without complications
CPT/HCPCS: 36415; 71046; 80053; 83880; 84484; 85027; 85379; 99282; 99283

== ENCOUNTER 2018-05-21 10:24 | Outpatient (CLI) | payer OTHER ==
--- NOTE | 2018-05-21 13:06 | Diagnostic Imaging Report ---
JANA SOLER [id number] [facility] [address] Report Submission Date: May 21, 2018 11:07:55 AM L TACKER Patient Study Name: PHILLIP LEE Date: May 21, 2018 10:37:12 AM L TACKER Modality Type: US Gender: M Description: US ABDOMEN LIMITED : 64 Institution: Physician: JANA SOLER Examination: Ultrasound abdomen History: RUQ PAIN Findings: Sonographic evaluation of the abdomen demonstrates a gallbladder without stones or sludge. Gallbladder wall is not thickened. Common bile duct not measured. No intrahepatic biliary dilation. Liver demonstrates normal homogeneous echogenicity. No mass. Normal flow on color analysis. Normal Doppler waveforms. Right kidney measures 11.4 cm in length. Normal cortical margins. No hydronephrosis. Pancreatic region, spleen, and abdominal aorta are without gross irregularity. Impression: No gallstones. Unremarkable abdominal ultrasound. Electronically signed on May 21, 2018 11:07:55 AM L TACKER by: Tejinder SANCHEZ
== END 2018-05-21 10:25 ==
LOC: RAD 10:24
PROVIDERS: ATTEND Family Medicine
DX: R18.8 Other ascites (principal)
CPT/HCPCS: 76705